=== PATIENT | female | born 2000 | race African-American/Black ===

== ENCOUNTER 2019-08-14 14:21 | Emergency (ER) | payer OTHER ==
[2019-08-14 14:47] LABS: #Basophils 0.1 thou/uL (0.0-0.2); #Eosinphils 0.1 thou/uL (0.0-0.7); #Lymphocytes 2.2 thou/uL (1.20-3.40); #Monocytes 0.5 thou/uL (0.11-0.59); #Neutrophils 5.3 thou/uL (1.40-6.50); %Basophils 0.6 % (0.0-1.0); %Eosinophils 0.6 % (0.0-10.0); %Lymphocytes 27.4 % (28.0-48.0); %Monocytes 6.1 % (0.0-4.0); %Neutrophils 65.2 % (31.0-61.0); Hemoglobin 11.9 g/dL (12.0-16.0); Mean Corpuscular Volume 82.5 fL (78.0-98.0); Mean Platelet Volume 7.6 fL (7.4-10.4); Platelet Count 266 thou/uL (130-400); RBC Distribution Width 13.1 % (11.5-14.5); Red Blood Cell (RBC) Count 4.24 mill/uL (4.00-5.20); White Blood Cell (WBC) Count 8.2 thou/uL (4.8-10.8)
[2019-08-14] MEDS ORDERED: Ondansetron ODT 4 MG TAB ONE (15:09)
[2019-08-14 15:10] LABS: ALT (SGPT) Less than 7 U/L (8-55); AST (SGOT) 13 U/L (5-34); Albumin 4.2 g/dL (3.5-5.0); Alkaline Phosphatase 57 U/L (40-100); Anion Gap 13 mmol/L (10-20); BUN (Urea Nitrogen) 8 mg/dL (7.0-18.7); Bilirubin, Total 0.4 mg/dL (0.2-1.2); Calc. Creatinine Clearance 0 mL/min (70-130); Calcium 9.7 mg/dL (7.8-10.44); Carbon Dioxide 21 mmol/L (22-29); Chloride 104 mmol/L (98-107); Estimated GFR-MDRD Greater than 90; Globulin 3.3 g/dL (2.4-3.5); Glucose 76 mg/dL (70-105); Lipase 9 U/L (8-78); Potassium 3.9 mmol/L (3.5-5.1); Protein, Total 7.5 g/dL (6.0-8.3); Sodium 134 mmol/L (136-145)
[2019-08-14 16:30] LABS: Bilirubin Negative (Negative); Blood, Urine Negative (Negative); Clarity Turbid (Clear); Glucose, Urine (Dipstick) Normal (Negative); Leukocyte 75 Leu/uL (Negative); Mucous/LPF 2+ LPF (<2+); Nitrite Negative (Negative); Protein, Urine (Dipstick) 30 mg/dL (Neg-Trace); Urobilinogen Normal mg/dL (Less than 2)
[2019-08-14 16:31] LABS: Pregnancy Test - Urine (BHCG) POSITIVE (Negative); Pregu Control Background? CLEAR/WHITE (CLR/WHITE); Pregu Control Bar Appear? YES (CONTROL BAR); Specific Gravity 1.034 (1.002-1.036)
[2019-08-14 16:45] LABS: Bacteria/HPF Rare-Few HPF (None Seen); RBC/HPF 0-3 HPF (0-3)
== END 2019-08-14 17:15 | disposition left against medical advice (07) ==
LOC: ERS 14:21
DX: Z53.21 Procedure and treatment not carried out due to patient leaving prior to being seen by health care provider (principal)
CPT/HCPCS: 36415; 80053; 81003; 81015; 81025; 83690; 84702; 85025; Q0162

== ENCOUNTER 2019-10-28 11:39 | Day surgery (SDC) | payer OTHER ==
[2019-10-28] MEDS ORDERED: hydrALAZINE 20 MG/ML VIAL SLOW IVP PRN (11:58)
[2019-10-28 12:10] VITALS: BMI 29.5
[2019-10-28] MEDS ORDERED: Acetaminophen 500 MG TAB PO SCH (12:45)
--- NOTE | 2019-10-28 12:49 | PDOC.FPROB ---
FMR OB H&P: HPI - History of Present Illness Chief Complaint: back/abdominal pain History of Present Illness: 18yo @ 22.6wk by 15wk sono complication by cHTN presents for cc of back/ abd pain. Pt states pain started with a lower abdominal "tightness" similar to May-Perkins contractions at 0900, this progressed to vaginal pressure, lower back pain at approx 1100. Pain comes and goes abotu every 10 minutes, lasting approx 2-3min. Does endorse associated n/v but has had n/v of most of this and sxs currently unchanged. Pt states pain has not gotten better or worse since onset. Ate breakfast this morning, has not tried any Tylenol. Endorses good movement, no LOF, vaginal bleeding/discharge, no dysuria, vaginal itching/burning. Mild SOB with pain. Denies any fever/chills, CP, diarrhea/constipation. No congestion, mild cough. No recent sexual intercourse. Primary Care Physician: PNC FMR OB H&P: Current - Care : 6 Para: 2031 Gestational age: 22.6 Due date: 02/25/2020 Dating Criteria: 15wk albertoo FMR OB H&P: History - Past Medical History PMH: Mild, persistent asthma. 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 L hamstring repair. D&C in 2017 for miscarriage. - Social History Social History: No Tob, EtOH, illicits. - Family History Family History: Aunt with gDM, and gHTN. FMR OB H&P: Medications - Current Home Medications: Medication Instructions Recorded Confirmed Type Fluticasone/Salmeterol 10/28/19 History [Fluticasone-Salmeterol 250-50] NIFEdipine [Procardia] 1 tab PO DAILY 10/28/19 10/28/19 History Pnv73/Iron,Gluc/Folic/Dss/Dha 10/28/19 History [Citranatal Assure Combo Pack] 114/Iron A-G/Folate 1 1 tab PO DAILY 10/28/19 10/28/19 History [Prenate Elite] Allergies/Adverse Reactions: Allergies Allergy/AdvReac Type Severity Reaction Status Date / Time nut - unspecified Allergy Verified 10/28/19 12:11 FMR OB H&P: ROS - Review of Systems General: denies: fever/chills, weight/appetite/sleep changes, recent trauma Eyes: denies: eye pain, vision changes ENT: denies: nasal congestion, rhinorrhea Cardiovascular: denies: chest pain, palpitation, edema Respiratory: reports: cough (occasional), shortness of breath (with pain but otherwise none). denies: congestion Gastrointestinal: reports: abdominal pain (lower, as described in HPI), nausea, vomiting (chronic in ). denies: indigestion, diarrhea, constipation Genitourinary (Female): reports: vaginal pain. denies: incontinence, dysuria, hematuria, vaginal discharge, vaginal bleeding, vaginal pressure Musculoskeletal: denies: pain Integumentary: denies: rash FMR OB H&P: Vital Signs - Maternal Vital signs: RR 20, Tmax 98.0, BP 94/49. - Heart Tones Baseline: 145 (reassuring) Variability: moderate [place] contractions every: absent FMR OB H&P: Physical Exam - Physical Exam General: NAD, awake, alert and oriented HEENT: MMM Neck: supple, trachea midline Heart: RRR, normal S1/S2, no murmurs/rubs/gallops, pulses present, no edema General: CTAB, no respiratory distress, good air movement, no rales/rhonchi, no wheezing Abdomen: soft, gravid, bowel sound present, other (mildly TTP over both RLQ and LLQ. No rebound or guading. Negative chamorro sign. Negative Psoas and rosving sign. No CVA tenderness.) Neurological: no focal deficit Psychiatric: intact recent and remote memory, good judgement and insight, normal mood and affect - Pelvic Exam Vulva: normal hair distribution SVE: Closed/Thick/High FMR OB H&P: A/P - Problem List (1) Status: Acute Qualifiers: Weeks of gestation: 22 weeks Qualified Code(s): Z3A.22 - 22 weeks gestation of Disposition: 18yo @ 22.6wk by 15wk sono complication by cHTN and mild/persistent asthma presents for cc of back/abd pain. #Back/Abd pain - @ 22.6wk by 15wk sono - No contractions on monitor. Baseline 145, moderate variability. - Maternal VSS, exam with mild lower abdominal tenderness - Straight cath UA ordered, return WNL - Differential includes but not limited to UTI, pylo, nephrolithiasis, cholecystitis, appendicitis - low suspicion 2/2 clinical presentation, maternal VSS, and negative UA - Pain improved with PO tylenol - Cervix closed on exam, no contractions on monitor - Return/labor precautions given, voiced understanding and agreement - Routine f/u with PNC Dispo: UA negative, not in labor. Discharged with return/labor precautions. Discussion: Date/Time: 10/28/19 1244 This H&P was discussed with Dr. Moseley and Dr. Saldaña who agree with the above documentation and plan. Addendum - Attending - Attending Attestation Date/Time: 10/28/19 7413 I personally evaluated the patient and discussed the management with Dr. Pearson. I agree with the History, Examination, Assessment and Plan documented above.
[2019-10-28 12:55] LABS: Bilirubin Negative (Negative); Blood, Urine Negative (Negative); Clarity Clear (Clear); Glucose, Urine (Dipstick) Normal (Negative); Leukocyte Negative Leu/uL (Negative); Nitrite Negative (Negative); Protein, Urine (Dipstick) Negative (Neg-Trace); RBC/HPF 0-3 HPF (0-3); Squamous Epithelial 0-3 HPF (0-3); Urobilinogen Normal mg/dL (Less than 2); WBC/HPF None Seen HPF (0-3)
[2019-10-28 12:56] LABS: Bacteria/HPF Rare-Few HPF (None Seen); Urine Culture Reflex No No
== END 2019-10-28 13:28 | disposition home or self-care (01) ==
LOC: L&D/OP 11:39
PROVIDERS: ATTEND Family Medicine
DX: O99.89 Other specified diseases and conditions complicating pregnancy, childbirth and the puerperium (principal); R10.30 Lower abdominal pain, unspecified; M54.9 Dorsalgia, unspecified; O10.912 Unspecified pre-existing hypertension complicating pregnancy, second trimester; O99.512 Diseases of the respiratory system complicating pregnancy, second trimester; J45.909 Unspecified asthma, uncomplicated; O09.292 Supervision of pregnancy with other poor reproductive or obstetric history, second trimester; Z3A.22 22 weeks gestation of pregnancy; Z79.899 Other long term (current) drug therapy; Z91.018 Allergy to other foods
CPT/HCPCS: 81001

== ENCOUNTER 2019-11-15 14:34 | Day surgery (SDC) | payer OTHER ==
[2019-11-15 14:52] VITALS: BP 113/59; TEMP 98.8
[2019-11-15 14:53] VITALS: BMI 30.5
[2019-11-15] MEDS ORDERED: Benzocaine-Menthol 82.5 ML CAN TOP PRN (15:57)
--- NOTE | 2019-11-15 16:05 | PDOC.FPROB ---
FMR OB H&P: HPI - History of Present Illness Chief Complaint: vulvar pain and itching Indentification: at 25.3w History of Present Illness: Pt reports vulvar itching for several days and onset of severe pain and swelling in labial area yesterday after intercourse. She has been using a wet cloth to itch the area. Reports previous similar episode during last attributed to severe vaginitis. Denies hx of STI's in the past. Denies abnormal vaginal discharge, vaginal odor, hematuria, frequency, or urgency. Does note pain during urination related to urine running over raw area of vulva from itching. Reports good FM. Denies LOF, vaginal bleeding, cramping, DIAL, n/v/c/d, fever/ chills, vision changes, abd pain, chest pain, SOB. Primary Care Physician: MANFRED FMR OB H&P: Current - Care : 6 Para: 2 Gestational age: 25.3 Due date: 02/25/20 Course/Complications: none reported FMR OB H&P: History - Past Medical History PMH: Asthma cHTN Anxiety Depression Anemia Hx of gHTN in previous Tobacco Abuse - OB History OB History: 2 previous , 1st with difficult extraction per pt - Surgical History Sx History: Hx of D&C Nose sx Hamstring sx - Social History Social History: Denies alcohol and drug use. Reports tobacco use- smoking 1-2cig/day. - Family History Family History: HTN, DM FMR OB H&P: Medications - Current Home Medications: Medication Instructions Recorded Confirmed Type Fluticasone/Salmeterol 2 puff PO PRN PRN 10/28/19 11/15/19 History [Fluticasone-Salmeterol 250-50] NIFEdipine [Procardia] 1 tab PO DAILY 10/28/19 11/15/19 History Pnv73/Iron,Gluc/Folic/Dss/Dha 1 tab PO DAILY 10/28/19 11/15/19 History [Citranatal Assure Combo Pack] 114/Iron A-G/Folate 1 1 tab PO DAILY 10/28/19 11/15/19 History [Prenate Elite] Acetaminophen W/ Codeine 2 tab PO NOW #0 tab 11/15/19 Rx [Acetaminophen/Codeine #3] Benzocaine-Menthol [Dermoplast 1 gm TOP PRN PRN #0 can 11/15/19 Rx [facility]] Clotrimazole/Betamethasone Cre 1 applic TOP BID #1 tube 11/15/19 Rx [Lotrisone Cream] Fluconazole [Diflucan] 100 mg PO Q3D #2 tab 11/15/19 Rx Allergies/Adverse Reactions: Allergies Allergy/AdvReac Type Severity Reaction Status Date / Time morphine Allergy Anaphylaxis Verified 11/15/19 15:01 nut - unspecified Allergy Anaphylaxis Verified 11/15/19 14:48 FMR OB H&P: ROS - Review of Systems General: denies: fever/chills Eyes: denies: vision changes ENT: denies: rhinorrhea Cardiovascular: denies: chest pain, palpitation, edema Gastrointestinal: denies: abdominal pain, cramping, nausea, vomiting, diarrhea, constipation Genitourinary (Female): reports: dysuria, vaginal pain. denies: incontinence, hematuria, vaginal discharge, vaginal bleeding, contractions, vaginal pressure Integumentary: reports: itching, lesions FMR OB H&P: Vital Signs - Maternal Vital signs: Vital Signs - First Documented Temp Pulse Resp BP 98.8 F 96 18 113/59 L 11/15/19 14:46 11/15/19 14:46 11/15/19 14:46 11/15/19 14:46 - Heart Tones Baseline: 150 Variability: moderate FMR OB H&P: Physical Exam - Physical Exam General: NAD, awake, alert and oriented Heart: RRR, normal S1/S2 General: CTAB, no respiratory distress, good air movement, no wheezing Abdomen: soft, gravid Deviation from normal: Labial minora swelling and dusky erythema - Pelvic Exam Deviation from normal: See Skin: no ulcers, lesions, fluctuance, or induration FMR OB H&P: A/P - Problem List (1) Vulvovaginal itching Status: Acute Code(s): L29.2 - PRURITUS VULVAE Disposition: Vulvovaginal Itching and Swelling Likely 2/2 Candidiasis: - Plan for vaginal exam after Dermoplast application for pain control - VP3 and GC/C - No obvious herpetic lesions, but with severity of pain will get HSV 1/2 IgG and IgM. - Will empirically treat with topical clotrimazole-betamethasone, and PO fluconazole q72h x3 doses per UptoDate. cHTN: - Prescribed procardia but has not been taking over the last few days. BP wnl today - encourage regular f/u and compliance of medication. Discussion: Date/Time: 11/15/19 1600 This H&P was discussed with [] and [] who agree with the above documentation and plan. Signature: Pt history, physical exam findings, and plan has been discussed with Dr. Renner who is in agreement with the plan. Addendum - Attending - Attending Attestation Date/Time: 11/18/19 2915 I personally evaluated the patient and discussed the management with Dr. Parish I agree with the History, Examination, Assessment and Plan documented above with any addition or exceptions noted below. vitals 98.8 96 18 113/59 vulva with some swelling. no visible exudate, no blisters, uclerative lesions, some erythema vp3 + for javi, BV Chlamydia + GC neg hsv 1/2 igm/igg pending PT sent home with treatment for javi/BV. I will report chlamydia results to Dr Parish who be contacting the pt.
[2019-11-15] MEDS ORDERED: Fluconazole 100 MG TAB PO SCH (17:00)
[2019-11-15] MEDS ORDERED: Acetaminophen/Codeine 30-300mg Tablet PO SCH (17:15)
--- NOTE | 2019-11-15 17:35 | PDOC.EVN ---
Event Note - Event Note Event Note: Speculum vaginal exam performed after dermoplast applied. Pt with significant pain still during exam which made exam limited. There was copious thick, white , clumpy discharge on exam. Cervix not visualized d/t the amount of discharge and pt's inability to tolerate exam. Discussed findings with Dr. Renner. Exam consistent with candidiasis. We will give her the first dose of Fluconazole and f/u pending GC/C, VP3, and HSV 1 /2 IgG and IgM. Discharge home with Tylenol #3.
[2019-11-17 14:09] LABS: Chlamydia by PCR DETECTED (NotDetected); GC by PCR Not Detected (NotDetected)
[2019-11-19 23:07] LABS: HSV-2 IgG Type Specific Less than 0.91 index (0.00-0.90)
== END 2019-11-15 17:40 | disposition home or self-care (01) ==
LOC: L&D/OP 14:34
PROVIDERS: ATTEND Obstetrics & Gynecology
DX: O98.812 Other maternal infectious and parasitic diseases complicating pregnancy, second trimester (principal); B37.3 Candidiasis of vulva and vagina; A56.02 Chlamydial vulvovaginitis; O10.912 Unspecified pre-existing hypertension complicating pregnancy, second trimester; Z3A.25 25 weeks gestation of pregnancy; Z79.899 Other long term (current) drug therapy; Z88.5 Allergy status to narcotic agent; Z91.018 Allergy to other foods
CPT/HCPCS: 36415; 86694; 86695; 86696; 87480; 87491; 87510; 87591; 87660; 99285

== ENCOUNTER 2019-11-26 21:53 | Day surgery (SDC) | payer OTHER ==
[2019-11-26 22:18] VITALS: BP 118/56; TEMP 99; BMI 31.4
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
[2019-11-26] MEDS ORDERED: hydrALAZINE 20 MG/ML VIAL SLOW IVP PRN (22:59)
[2019-11-26] MEDS ORDERED: Promethazine 25 MG TAB PO SCH (23:00)
[2019-11-26] MEDS ORDERED: Acetaminophen 325 MG TAB PO SCH (23:00)
[2019-11-26] MEDS ORDERED: Promethazine HCl 25 MG/ML VIAL IM SCH (23:15)
[2019-11-26 23:38] LABS: #Eosinphils 0.1 thou/uL (0.0-0.7); #Lymphocytes 2.4 thou/uL (1.20-3.40); #Monocytes 0.6 thou/uL (0.11-0.59); #Neutrophils 8.9 thou/uL (1.40-6.50); %Basophils 0.3 % (0.0-1.0); %Eosinophils 0.6 % (0.0-10.0); %Lymphocytes 19.8 % (28.0-48.0); %Monocytes 5.2 % (0.0-4.0); %Neutrophils 74.1 % (31.0-61.0); Mean Corpuscular HGB CONC 31.8 g/dL (32.0-36.0); Mean Corpuscular Hemoglobin 25.1 pg (25.0-35.0); Mean Corpuscular Volume 79.1 fL (78.0-98.0); Mean Platelet Volume 8.3 fL (7.4-10.4); Platelet Count 238 thou/uL (130-400); RBC Distribution Width 12.8 % (11.5-14.5); Red Blood Cell (RBC) Count 3.56 mill/uL (4.00-5.20); White Blood Cell (WBC) Count 12.1 thou/uL (4.8-10.8)
--- NOTE | 2019-11-26 23:59 | PDOC.BPN ---
- Brief Progress Note Pt reports she is feeling somewhat better w/ the Tylenol and phenergan. resting comfortably. Ate some ava crackers and has kept them done. Spoke w/ Dr. Saldaña. Okay to discharge. Return precautions given.
== END 2019-11-27 00:25 | disposition home or self-care (01) ==
LOC: L&D/OP 21:53
PROVIDERS: ATTEND Obstetrics & Gynecology
DX: O99.89 Other specified diseases and conditions complicating pregnancy, childbirth and the puerperium (principal); R10.9 Unspecified abdominal pain; O21.2 Late vomiting of pregnancy; O10.912 Unspecified pre-existing hypertension complicating pregnancy, second trimester; O99.012 Anemia complicating pregnancy, second trimester; D64.9 Anemia, unspecified; O99.512 Diseases of the respiratory system complicating pregnancy, second trimester; J45.909 Unspecified asthma, uncomplicated; O09.292 Supervision of pregnancy with other poor reproductive or obstetric history, second trimester; Z3A.27 27 weeks gestation of pregnancy; Z79.899 Other long term (current) drug therapy; Z88.5 Allergy status to narcotic agent; Z91.018 Allergy to other foods; W18.2XXA Fall in (into) shower or empty bathtub, initial encounter
CPT/HCPCS: 36415; 85025; 86850; 86900; 86901; 96372; 99283; J2550

== ENCOUNTER 2019-12-11 20:35 | Day surgery (SDC) | payer OTHER ==
[2019-12-11 22:07] VITALS: BMI 30.7
[2019-12-11 22:13] LABS: Amnisure Test No Membranes Rupture (No Rupture)
[2019-12-11 22:14] LABS: Amnisure Internal Control QC ACCEPTABLE (ACCEPTABLE)
[2019-12-11] MEDS ORDERED: Acetaminophen 325 MG TAB PO SCH (22:15)
--- NOTE | 2019-12-11 22:20 | PDOC.FPROB ---
FMR OB H&P: HPI - History of Present Illness Chief Complaint: Fluid Leakage, Contractions History of Present Illness: Pt is a 18 yo at 29.1 weeks who presented with a leakage of vaginal fluid then start of vaginal pressure one hour prior to visit. She states she felt a "gush of water" while sitting then stood up and felt more. She noticed about a 6 ounce cups worth of fluid. The fluid was a little thicker than water , milkly white in color. She did not appreciate a smell. The vaginal pressure lasted about 1 min and occurred about every 5 mins and before the interview her pain moved to lumbar back. She denies trauma, vaginal bleeding, chest pain, sob , RUQ pain, fever. She did feel warm. She was treated at the clinic on 12/10/19 for chlamydia. A few weeks ago she was treated for BV, javi, and chlamydia. Her partner was not treated but pt denies sexual activity. 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 History: Hx of BC, Javi, Chlamydia during this - Surgical History Sx History: Left Distal Hamstring Repair - Social History Social History: Denies tobacco, drugs, alcohol - Family History Family History: non-contributory FMR OB H&P: Medications - Current Home Medications: Medication Instructions Recorded Confirmed Type Fluticasone/Salmeterol 2 puff PO PRN PRN 10/28/19 11/26/19 History [Fluticasone-Salmeterol 250-50] NIFEdipine [Procardia] 1 tab PO DAILY 10/28/19 11/26/19 History 114/Iron A-G/Folate 1 1 tab PO DAILY 10/28/19 11/26/19 History [Prenate Elite] Allergies/Adverse Reactions: Allergies Allergy/AdvReac Type Severity Reaction Status Date / Time morphine Allergy Anaphylaxis Verified 11/15/19 15:01 nut - unspecified Allergy Anaphylaxis Verified 11/15/19 14:48 FMR OB H&P: ROS - Review of Systems General: denies: fever/chills, weight/appetite/sleep changes Eyes: denies: eye pain, vision changes, scotomas ENT: denies: nasal congestion, rhinorrhea Cardiovascular: denies: chest pain, palpitation, edema Respiratory: denies: cough, congestion, shortness of breath Gastrointestinal: reports: cramping, nausea. denies: abdominal pain, indigestion, bloating, vomiting, diarrhea, constipation Genitourinary (Female): reports: vaginal pressure. denies: dysuria, hematuria, hesitancy, vaginal discharge, vaginal bleeding Musculoskeletal: denies: pain, stiffness Neurologic: denies: numbness, syncope FMR OB H&P: Vital Signs - Heart Tones Baseline: 150 Variability: moderate Acceleration: absent Deceleration: variable Hasty contractions every: no contractions FMR OB H&P: Physical Exam - Physical Exam Deviation from normal: uncomfortable appearing HEENT: PERRLA, EOMI Neck: FROM, trachea midline Heart: RRR, normal S1/S2, no edema General: CTAB, no respiratory distress, good air movement, no wheezing Abdomen: soft, gravid, non-tender, bowel sound present Musculoskeletal: pulses present Skin: no rash Lymphatic: no purpura, no petechia Psychiatric: good judgement and insight - Pelvic Exam Cervix: no masses, no blood Deviation from normal: white discharge noted, did not appreciate erythema at os FMR OB H&P: A/P - Problem List (1) Abnormal vaginal fluids Current Visit: Yes Status: Acute Code(s): R87.9 - UNSP ABNORMAL FINDING IN SPECMN FROM FEMALE GENITAL ORGANS (2) Intrauterine Current Visit: Yes Status: Acute Code(s): Z34.90 - ENCNTR FOR SUPRVSN OF NORMAL , UNSP, UNSP TRIMESTER Discussion: Date/Time: 12/11/19 2213 18 yo at 29.1 weeks who presented with a leakage of vaginal fluid then start of vaginal pressure one hour prior to visit: # Abnormal Vaginal Fluid # Intrauterine Performed sterile speculum exam, did not appreciate pooling or fluid leakage with cough. Cervical os did not appear dilated. Did appreciate white discharge and white substance on vaginal wall. - perform VP3 - perform amnisure - pending U/A - U/S to assess GEORGE; variable decels noted [facility] - [facility] This H&P was discussed with Dr. Du and Dr. Parish who agree with the above documentation and plan. Addendum - Attending - Attending Attestation Date/Time: 12/11/19 3049 I personally evaluated the patient and discussed the management with Drs. Wick and Jem. I agree with the History, Examination, Assessment and Plan documented above.
[2019-12-11 22:39] LABS: Bacteria/HPF None Seen HPF (None Seen); Bilirubin Negative (Negative); Blood, Urine Negative (Negative); Clarity Clear (Clear); Glucose, Urine (Dipstick) Normal (Negative); Leukocyte Negative Leu/uL (Negative); Nitrite Negative (Negative); Protein, Urine (Dipstick) Negative (Neg-Trace); RBC/HPF 0-3 HPF (0-3); Squamous Epithelial 0-3 HPF (0-3); Urobilinogen Normal mg/dL (Less than 2); WBC/HPF 0-3 HPF (0-3)
--- NOTE | 2019-12-12 08:38 | ULT ---
PRELIMINARY REPORT/[facility]/EMERGENCY AFTER HOURS PROCEDURE: EXAM: US Obstetrical, Limited. CLINICAL HISTORY: Pelvic pressure, lower back pain (on/off), leaking fluid. TECHNIQUE: Real-time ultrasound of the maternal uterus (limited) with image documentation. COMPARISON: None provided. FINDINGS: Single intrauterine gestation is identified. position is vertex. heart rate is 140 bpm. BPD 7.3 cm; 29 weeks 1 day. HC 27.5 cm; 30 weeks 1 day. AC 24.9 cm; 29 weeks 1 day. FL 5.9 cm; 30 weeks 5 days. Estimate weight 1449 g. 60th percentile. Average ultrasound age 29 weeks 6 days. GEORGE 13 cm. The placenta is posterior with no sign of abruption. The cervix measures 3.8 cm in length and appears closed. anatomic survey not performed at this time, however no significant abnormalities are obse rved. IMPRESSION: Single live intrauterine . Average ultrasound age of 29 weeks 6 days. No acute abnormality . ELECTRONICALLY SIGNED BY: Edward Lisa M.D. Dec 12, 2019 12:48:30 AM SYRUP BL[employer]ER This report is intended for review by the ordering physician only, in accordance of law. If you recei ve this report in error, please call [facility] at [phone]. FINAL REPORT EMERGENCY AFTER HOURS LIMITED OB ULTRASOUND: HISTORY: Patient leaking fluid. Pelvic pressure. FINDINGS: Real-time imaging of the pelvis shows a single, viable intrauterine in a vertex presentatio n. The placenta is posterior in location without evidence of previa. heart rate is 140 beats/mi nute. measurements are as shown by the preliminary report. Amniotic fluid index is 13.0. Visual ly, the fluid appears borderline low. The cervical canal is 3.8 cm in length. IMPRESSION: 1. Single, viable intrauterine in a vertex presentation. Overall measurements correspondin g to a gestational age of 29 weeks and 6 days. Estimated date of delivery is 02/20/2020. 2. Amniotic fluid index is 13.1. Visually, the fluid appears borderline low. Follow-up would be shanna siddiqi given history. 3. Estimated weight is 1450 gm, +/- 214 gm. 4. Placenta posterior in location and without evidence of previa. Report in agreement with the preliminary report issued by [facility]. POS: [facility]
[2019-12-12] MEDS ORDERED: FLU VACC QS2019-20(6MOS UP)/PF 60 MCG/0.5 ML SYRINGE IM ONE (21:00)
== END 2019-12-12 03:11 | disposition home or self-care (01) ==
LOC: L&D/OP 20:35
PROVIDERS: ATTEND Obstetrics & Gynecology
DX: O99.89 Other specified diseases and conditions complicating pregnancy, childbirth and the puerperium (principal); R87.9 Unspecified abnormal finding in specimens from female genital organs; O99.513 Diseases of the respiratory system complicating pregnancy, third trimester; J45.909 Unspecified asthma, uncomplicated; Z3A.29 29 weeks gestation of pregnancy; Z88.5 Allergy status to narcotic agent; Z91.018 Allergy to other foods
CPT/HCPCS: 76815; 81001; 84112; 87480; 87510; 87660; 99285

== ENCOUNTER 2019-12-21 02:28 | Day surgery (SDC) | payer OTHER ==
[2019-12-21] MEDS ORDERED: Butorphanol Tartrate 1 MG/ML VIAL ONE (03:26)
[2019-12-21 03:38] VITALS: BP 120/57; TEMP 98.5; BMI 30.7
[2019-12-21] MEDS ORDERED: hydrALAZINE 20 MG/ML VIAL SLOW IVP PRN (03:40)
[2019-12-21] MEDS ORDERED: Fluconazole 100 MG TAB PO SCH (04:00)
[2019-12-21] MEDS ORDERED: Benzocaine-Menthol 82.5 ML CAN TOP SCH (04:00)
--- NOTE | 2019-12-21 04:11 | PDOC.FPROB ---
FMR OB H&P: HPI - History of Present Illness Chief Complaint: vaginal burning History of Present Illness: 19yo @ 30.4wks complicated by gHTN presents for vaginal burning. Pt states sxs started first of the week and mild, called clinic but unable to be seen. Today sxs are severely worsened with burning vaginal pain, labial swelling , and very tender to the touch. Has held her urine most of the day due to fear of pain. Mild dysuria 2/2 vaginal discomfort. She states that when she did finally urinate at about 0200 she had a small amount of bleeding with wiping and then passed 1 half-dollar sized clot, no bleeding since. Called EMS at that time and presented to triage. Endorses good movement, no contractions, no LOF, no dyspnea, CP, vision changes, DIAL, n/v, fever/chills. Of note, she was treated for chlamydia, BV, and UTI about a month ago. States finished course of abx. Has not had sexual intercourse since that time however partner has not been treated. Denies history of herpes. Primary Care Physician: MANFRED Shah FMR OB H&P: Current - Care : 6 Para: 1132 Gestational age: 30.4 Due date: 02/25/20 FMR OB H&P: History - Past Medical History PMH: Moderate persistent asthma, anemia - OB History OB History: hx of 3 miscarriges (2 "early" and 1 at 18wk), gDM, and gHTN in prior pregnancies, anemia of s/p blood transfusion after delivery of her son. 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 - Surgical History Sx History: L distal hamstring repair, sinus surgery - Social History Social History: Tob use prior to , no tob/drugs/EtOH during . Lives [facility]. - Family History Family History: non-contributory FMR OB H&P: Medications - Current Home Medications: Medication Instructions Recorded Confirmed Type Fluticasone/Salmeterol 2 puff PO PRN PRN 10/28/19 12/21/19 History [Fluticasone-Salmeterol 250-50] 114/Iron A-G/Folate 1 1 tab PO DAILY 10/28/19 12/21/19 History [Prenate Elite] Allergies/Adverse Reactions: Allergies Allergy/AdvReac Type Severity Reaction Status Date / Time morphine Allergy Anaphylaxis Verified 12/21/19 03:13 nut - unspecified Allergy Anaphylaxis Verified 12/21/19 03:13 FMR OB H&P: ROS - Review of Systems General: denies: fever/chills, weight/appetite/sleep changes, night sweats Eyes: denies: vision changes ENT: denies: nasal congestion, rhinorrhea, sore throat Cardiovascular: denies: chest pain Respiratory: denies: cough, congestion, shortness of breath Gastrointestinal: denies: abdominal pain, diarrhea, constipation Genitourinary (Female): reports: dysuria, vaginal discharge, vaginal pain, vaginal bleeding. denies: incontinence, contractions Musculoskeletal: denies: pain, stiffness FMR OB H&P: Vital Signs - Maternal Vital signs: Vital Signs - First Documented Temp Pulse Resp BP 98.5 F 90 24 H 120/57 L 12/21/19 02:45 12/21/19 02:45 12/21/19 02:45 12/21/19 02:45 - Heart Tones Baseline: 140 Variability: moderate Acceleration: absent Deceleration: variable [place] contractions every: intermittant FMR OB H&P: Physical Exam - Physical Exam General: awake, alert and oriented, other (uncomfortable, crying 2/2 vaginal pain) HEENT: EOMI, MMM Neck: supple, trachea midline Heart: RRR, normal S1/S2, pulses present, other (2/6 systolic flow murmur) General: CTAB, no respiratory distress, good air movement, no rales/rhonchi, no wheezing Abdomen: soft, gravid, non-tender, bowel sound present Musculoskeletal: FROM in all four extremities Neurological: no focal deficit - Pelvic Exam Vulva: normal hair distribution, no masses, no lesions, no blood Deviation from normal: closed on spec exam, cervical tenderness with swab collection Cervix: no masses, no lesions, no blood Deviation from normal: thick, white discharge FMR OB H&P: A/P - Problem List (1) Intrauterine Current Visit: Yes Status: Acute Code(s): Z34.90 - ENCNTR FOR SUPRVSN OF NORMAL , UNSP, UNSP TRIMESTER (2) Vulvovaginal itching Current Visit: Yes Status: Acute Code(s): L29.2 - PRURITUS VULVAE Disposition: 19yo @ 30.4wks complicated by gHTN presents for vaginal burning #Vaginal burning, suspected vulvovaginal candidiasis - tx for BV, UTI, and chlamydia about 1 month ago, no SARITHA obtained yet - ~5d of vaginal itching with acute worsening of sxs - passed of 1 large clot, suspected 2/2 vaginal irritation from infx - Spec exam with closed cervical OS, no bleeding from OS, no blood in vaginal canal - white discharge noted, mild CMT on spec exam, labial swelling - suspect severe vulvovaginal candidiasis - VP3, GC/C, and UA clean - will treat with fluconazole 150mg x1 and clotrimazole x3d - R/B/A of fluconzaole tx discussed with pt who agreement for tx - Stadol x1 for pain - will need close OP f/u - cervical closed, low suspicion for placenta pathology PCP: MANFRED Shah Dispo: Discharge home with return precautions and close OP f/u. Discussion: Date/Time: 12/21/19 0400 This H&P was discussed with Dr. Urena and Dr. Shah who agree with the above documentation and plan. Addendum - Attending - Attending Attestation Date/Time: 12/21/19 0637 I personally evaluated the patient and discussed the management with Dr. Pearson I agree with the History, Examination, Assessment and Plan documented above with any addition or exceptions noted below. suspected vulvovaginal candidiasis. Given severity, will treat with 1x dose diflucan and then give monostat cream. Discussed R/B/A of diflucan in and patient was agreeable to treatment. 2/6 systolic flow murmur over right sternal border. Likely physiologic. Note placed in patient's clinic chart. will evaluate outpatient. [facility]. will f/u on swab/culture results.
[2019-12-21] MEDS ORDERED: Butorphanol Tartrate 1 MG/ML VIAL SLOW IVP SCH (04:15)
[2019-12-21] MEDS ORDERED: Clotrimazole 2% 3 Day Vag Cr 22.2 GM TUBE VAG SCH ×2 (04:15→21:00)
[2019-12-21 04:22] LABS: Bacteria/HPF None Seen HPF (None Seen); Bilirubin Negative (Negative); Blood, Urine Negative (Negative); Clarity Clear (Clear); Glucose, Urine (Dipstick) Normal (Negative); Leukocyte Negative Leu/uL (Negative); Nitrite Negative (Negative); Protein, Urine (Dipstick) Negative (Neg-Trace); RBC/HPF 0-3 HPF (0-3); Squamous Epithelial 0-3 HPF (0-3); Urobilinogen Normal mg/dL (Less than 2); WBC/HPF 0-3 HPF (0-3)
[2019-12-21 04:47] LABS: Urine Culture Reflex No No
[2019-12-21] MEDS ORDERED: FLU VACC QS2019-20(6MOS UP)/PF 60 MCG/0.5 ML SYRINGE IM ONE (05:00)
[2019-12-23 00:09] LABS: Chlamydia by PCR Not Detected (NotDetected); GC by PCR Not Detected (NotDetected)
== END 2019-12-21 05:41 | disposition home or self-care (01) ==
LOC: L&D/OP 02:28
PROVIDERS: ATTEND Obstetrics & Gynecology
DX: O99.713 Diseases of the skin and subcutaneous tissue complicating pregnancy, third trimester (principal); L29.2 Pruritus vulvae; O99.513 Diseases of the respiratory system complicating pregnancy, third trimester; J45.40 Moderate persistent asthma, uncomplicated; O13.3 Gestational [pregnancy-induced] hypertension without significant proteinuria, third trimester; Z3A.30 30 weeks gestation of pregnancy; Z88.5 Allergy status to narcotic agent; Z91.018 Allergy to other foods
CPT/HCPCS: 81001; 87480; 87491; 87510; 87591; 87660; J0595